=== PATIENT | female | born 1955 ===

== ENCOUNTER 2022-07-18 09:46 | Outpatient (CLI) | payer OTHER | END 2022-07-18 09:49 | disposition home or self-care (01) | LOC: SONOGRAMA 09:46 | PROVIDERS: ATTEND Pathology Anatomic Pathology | DX: E04.1 Nontoxic single thyroid nodule (principal) ==

== ENCOUNTER 2023-09-14 12:06 | Outpatient (CLI) | payer OTHER | END 2023-09-14 12:08 | disposition home or self-care (01) | LOC: SONOGRAMA 12:06 | PROVIDERS: ATTEND Pathology Anatomic Pathology & Clinical Pathology | DX: D34 Benign neoplasm of thyroid gland (principal); E04.9 Nontoxic goiter, unspecified ==

== ENCOUNTER 2025-02-27 08:02 | Outpatient (CLI) | payer OTHER | END 2025-02-27 08:06 | disposition home or self-care (01) | LOC: SONOGRAMA 08:02 | PROVIDERS: ATTEND Pathology Anatomic Pathology & Clinical Pathology | DX: D34 Benign neoplasm of thyroid gland (principal); E07.89 Other specified disorders of thyroid; E04.1 Nontoxic single thyroid nodule ==